=== PATIENT | female | born 1985 | race Two or more races ===

== ENCOUNTER 2023-11-17 06:11 | Day surgery (SDC) | payer BC ==
[~2023-11-17] VITALS: Ht 167.6 cm; Wt 58.1 kg
[2023-11-17] MEDS ORDERED: ceFAZolin 2 GM/D5W50ml 50 ML IV ONE (06:35)
[2023-11-17] MEDS ORDERED: LIDOCAINE W/ EPINEPHRINE 1% 20ML VIAL ONE (07:34)
[2023-11-17] MEDS ORDERED: fentaNYL CITRATE 100 MCG/2 ML VL ONE (07:50)
[2023-11-17] MEDS ORDERED: LIDOCAINE 2% (LOCAL ANESTH.) PF 5ml SDV ONE (07:50)
[2023-11-17] MEDS ORDERED: MIDAZOLAM HCL 2MG/2ML 2ml VIAL (1mg/ml) ONE (07:50)
[2023-11-17] MEDS ORDERED: ONDANSETRON HCL 4 MG/2 ML VIAL ONE (07:50)
[2023-11-17] MEDS ORDERED: ROCURONIUM 10MG/ML 10ML VIAL IV ONE (07:51)
[2023-11-17] MEDS ORDERED: PROPOFOL 10 MG/ML 20 ML IV ONE (07:51)
[2023-11-17] MEDS ORDERED: HYDR-4902 PO (08:04)
[2023-11-17] MEDS ORDERED: IBUP-1454 PO (08:04)
[2023-11-17] MEDS ORDERED: ONDANSETRON HCL 4 MG/2 ML VIAL IV ONE (09:00)
[2023-11-17] MEDS ORDERED: HYDROmorphone HCL 2 MG/ML VL/or syr IV PRN ×2 (09:00)
[2023-11-17 09:22] VITALS: PULSE 85; RESP 10; TEMP 97.7; O2SAT 100
[2023-11-17] MEDS ORDERED: NEOSTIGMINE 1 MG/ML INJ (10mg/10ML VIAL) ONE (09:33)
[2023-11-17] MEDS ORDERED: GLYCOPYRROLATE 0.2 MG/ML 1ML VIAL ONE (09:33)
[2023-11-17 10:00] VITALS: BP 116/62; PULSE 75; RESP 16; O2SAT 100
== END 2023-11-17 10:20 | disposition home or self-care (01) ==
LOC: SUR 06:11
PROVIDERS: ATTEND Obstetrics & Gynecology
DX: Z30.2 Encounter for sterilization (principal); T83.32XA Displacement of intrauterine contraceptive device, initial encounter; N83.8 Other noninflammatory disorders of ovary, fallopian tube and broad ligament; Z98.890 Other specified postprocedural states; Z90.89 Acquired absence of other organs; Y83.8 Other surgical procedures as the cause of abnormal reaction of the patient, or of later complication, without mention of misadventure at the time of the procedure
CPT/HCPCS: 58301; 58670; 86850; 86900; 86901; 88300; 88305; J0690; J2001; J2250; J2405; J2704; J3010